=== PATIENT | female | born 1980 | race Caucasian/White ===

== ENCOUNTER 2016-12-22 05:02 | Day surgery (SDC) | payer OTHER ==
[2016-12-20 18:29] VITALS: BMI 21.9
[~2016-12-22 05:02] MED LIST: ceFAZolin SODIUM 1 GM VIAL IVPB ONE
[2016-12-22] MEDS ORDERED: MIDAZOLAM HCL 2 MG/2 ML SINGLE DOSE VIAL ONE (14:19)
[2016-12-22] MEDS ORDERED: PROPOFOL 20 ML ONE (14:19)
[2016-12-22] MEDS ORDERED: PROMETHAZINE HCL 25 MG/1 ML VIAL IVPUSH PRN (15:00)
[2016-12-22] MEDS ORDERED: oxyCODONE HCL 5 MG TABLET PO PRN ×2 (15:00→15:49)
[2016-12-22] MEDS ORDERED: ONDANSETRON 4 MG/2 ML VIAL IVPUSH PRN (15:00)
--- NOTE | 2016-12-22 15:48 | HP ---
[id number] Chief Complaint: meorrhagia, EM polyp, fibroid uterus History of Present Illness: 36 yo f with hx of heavy menses and fibroid uterus and EM polyp admitted for hysteroscopy D&C, rba discussed History Source: Patient Limitations to Obtaining History: No Limitations - Past Surgical History Hx Myomectomy: No Hx Transabdominal Cerclage: No - Smoking History Smoking history: Never smoked Have you smoked in the past 12 months: No - Alcohol/Substance Use Hx Alcohol Use: No - Social History History of Recent Travel: No Home Medications - Allergies Allergies/Adverse Reactions: Allergies Allergy/AdvReac Type Severity Reaction Status Date / Time No Known Drug Allergies Allergy Verified 12/20/16 18:30 - Home Medications Home Medications: Ambulatory Orders Ibuprofen [Motrin -] 600 mg PO QID #28 tablet 12/22/16 Review of Systems - Review of Systems Constitutional: reports: No Symptoms Eyes: reports: No Symptoms HENT: reports: No Symptoms Neck: reports: No Symptoms Cardiovascular: reports: No Symptoms Respiratory: reports: No Symptoms Gastrointestinal: reports: No Symptoms Genitourinary: reports: Vaginal Bleeding Breasts: reports: No Symptoms Reported Musculoskeletal: reports: No Symptoms Neurological: reports: No Symptoms Endocrine: reports: No Symptoms Hematology/Lymphatic: reports: No Symptoms Psychiatric: reports: No Symptoms Physical Exam-[employer] Vital Signs: Vital Signs Temperature 98.4 F 12/22/16 13:44 Pulse Rate 94 H 12/22/16 13:44 Respiratory Rate 18 12/22/16 13:44 Blood Pressure 92/62 12/22/16 13:44 O2 Sat by Pulse Oximetry (%) 98 12/22/16 13:44 Constitutional: Yes: Well Nourished, No Distress, Calm Eyes: Yes: WNL, Conjunctiva Clear, EOM Intact HENT: Yes: WNL, Atraumatic, Normocephalic Neck: Yes: WNL, Supple, Trachea Midline Cardiovascular: Yes: WNL, Regular Rate and Rhythm Respiratory: Yes: WNL, Regular, CTA Bilaterally Gastrointestinal: Yes: WNL ...Rectal Exam: Yes: WNL Renal/: Yes: WNL Pelvis: Yes: WNL External Genitalia: Yes: Normal Internal Exam Deferred: Yes Vaginal Exam: Yes: Normal Cervix: Yes: Normal Uterus: Yes: Enlarged, Firm, Retroverted Adnexa: Not Palpable: Left, Right Breast(s): Yes: WNL Musculoskeletal: Yes: WNL Extremities: Yes: WNL Edema: No Integumentary: Yes: WNL Neurological: Yes: WNL, Alert, Oriented ...Motor Strength: WNL Psychiatric: Yes: WNL, Alert, Oriented Problem List - Problem (1) Menorrhagia Code(s): N92.0 - EXCESSIVE AND FREQUENT MENSTRUATION WITH REGULAR CYCLE Qualifiers: Menorrahagia type: with regular cycle Qualified Code(s): N92.0 - Excessive and frequent menstruation with regular cycle (2) Endometrial polyp Code(s): N84.0 - POLYP OF CORPUS UTERI (3) Uterine fibroid Code(s): D25.9 - LEIOMYOMA OF UTERUS, UNSPECIFIED Qualifiers: Uterine leiomyoma location: submucous Qualified Code(s): D25.0 - Submucous leiomyoma of uterus Assessment/Plan hysteroscopy , D&C, polypectomy
[2016-12-22] MEDS ORDERED: IBUPROFEN 800 MG/8 ML IJ IVPB PRN (15:49)
[2016-12-22] MEDS ORDERED: ONDANSETRON 4 MG/2 ML VIAL IVPB PRN (15:49)
[2016-12-22] MEDS ORDERED: IBUPROFEN 600 MG TABLET (FP) PO PRN (15:49)
[2016-12-22] MEDS ORDERED: KETOROLAC TROMETHAMINE 30 MG/1 ML VIAL ONE (15:51)
[2016-12-22] MEDS ORDERED: ELECTROLYTE-148 SOLN 1,000 ML IV SCH (16:00)
[2016-12-22] MEDS ORDERED: KETOROLAC TROMETHAMINE 30 MG/1 ML VIAL IVPUSH PRN (16:16)
[2016-12-22 16:41] VITALS: TEMP 98.4
[2016-12-22] MEDS ORDERED: ONDANSETRON 4 MG/2 ML VIAL ONE (17:40)
[2016-12-22 20:05] VITALS: BP 100/62; PULSE 60
--- NOTE | 2016-12-23 08:36 | OP ---
DATE OF OPERATION: 12/22/2016 PREOPERATIVE DIAGNOSES: Metrorrhagia, endometrial polyp, fibroid uterus. POSTOPERATIVE DIAGNOSES: Metrorrhagia, endometrial polyp, fibroid uterus. PROCEDURE: Hysteroscopy, dilatation and curettage, polypectomy. SURGEON: Christiano Burleson MD ANESTHESIA: General. ANESTHESIOLOGIST: Magno Mir MD ESTIMATED BLOOD LOSS: 50 mL. OPERATION: Patient was taken to the operating room. Under adequate general anesthesia, examination under anesthesia revealed external genitalia to be normal. Vagina was normal. Cervix was clear, no lesion. Uterus was enlarged, approximately 12 weeks' size, with a fibroid. Adnexae: No masses were palpable. Then, with a weighted speculum in the vagina anterior lip of cervix was grasped with single-tooth tenaculum and uterine cavity was sounded to 9 cm. Cervix was slightly dilated with a Hegar dilator and grasped with single-tooth tenaculum and then hysteroscope was introduced. Endocervical canal appeared to be normal. Endometrium irregular with 2 small polyps. There was a submucous myoma at the left cornual region of the uterus. Both cornual regions were identified and tubal ostium was visualized. No other abnormality was noted. Then, the cervix was gradually dilated with Hegar dilator. Endometrium was curetted and the polyp was removed. Hysteroscope was reintroduced. No more polyp was seen. Patient tolerated procedure well. Left the OR in good condition. Robert [id number]
--- NOTE | 2016-12-26 13:10 | PATH ---
Surgical Pathology Report Patient Name: MYA GRECO [facility]. Rec. #: [id number] /Age/Gender: 1980 (Age: 36) / F Account: [id number] Location: [facility] SURGICAL Taken: 12/22/2016 Received: 12/23/2016 Reported: 12/26/2016 Physicians: Christiano Burleson M.D. Specimen(s) Received ENDOMETRIAL CURETTINGS Clinical History Menorrhagia, menometrial polyp Final Diagnosis ENDOMETRIUM, CURETTING AND POLYPECTOMY: SECRETORY ENDOMETRIUM WITH AREA CONSISTENT WITH BENIGN ENDOMETRIAL POLYP. Electronically Signed Medhat Anderson M.D. Gross Description Received in formalin labeled "endometrial curettings and polyp," is a 5.0 x 4.0 x 0.4 cm aggregate of ivy-brown soft tissue fragments admixed with blood clot. The formalin is filtered and the specimen is entirely submitted in 4 cassettes /12/23/2016 formerly [facility]12/23/2016
== END 2016-12-22 17:20 | disposition home or self-care (01) ==
LOC: JASU-SURG 05:02
PROVIDERS: ATTEND Obstetrics & Gynecology
PROC: 0UB98ZX Excision of Uterus, Via Natural or Artificial Opening Endoscopic, Diagnostic (ICD-10-PCS; principal; 2016-12-22 14:30)
PROC: 0UDB8ZX Extraction of Endometrium, Via Natural or Artificial Opening Endoscopic, Diagnostic (ICD-10-PCS; 2016-12-22 14:30)
DX: N92.1 Excessive and frequent menstruation with irregular cycle (principal); D25.9 Leiomyoma of uterus, unspecified; N84.0 Polyp of corpus uteri
CPT/HCPCS: 86850; 86900; 86901; 88305-TC; 94760